=== PATIENT | male | born 1965 | race Caucasian/White ===

== ENCOUNTER 2017-11-12 17:15 | Observation (INO) | payer OTHER ==
[2017-11-12] MEDS ORDERED: PROPOFOL 20 ML (19:36)
[2017-11-12] MEDS ORDERED: NEOSTIGMINE 3 MG/3 ML SYRINGE (19:36)
[2017-11-12] MEDS ORDERED: ROCURONIUM 50 MG INJ (19:36)
[2017-11-12] MEDS ORDERED: CEFAZOLIN 1 GM INJ (19:36)
[2017-11-12] MEDS ORDERED: GLYCOPYRROLATE 0.4 MG INJ (19:36)
[2017-11-12] MEDS ORDERED: ONDANSETRON 4 MG INJ (19:37)
[2017-11-12] MEDS ORDERED: FENTAnyl 50 MCG/ML VIAL (19:37)
[2017-11-12] MEDS ORDERED: MIDAZOLAM 1 MG/ML 2 ML INJ (19:37)
[2017-11-12] MEDS ORDERED: ROPIVACAINE 0.5 % 30 ML VIAL ×2 (19:37→20:26)
[2017-11-12] MEDS ORDERED: DEXAMETHASONE 4 MG/ML 1 ML INJ (19:37)
[2017-11-12] MEDS ORDERED: FENTAnyl 50 MCG/ML VIAL IV ×3 (20:30)
[2017-11-12] MEDS ORDERED: LABETALOL HCL 20MG INJ IV (20:30)
[2017-11-12] MEDS ORDERED: EPHEDrine SULFATE 50 MG/5 ML SYG IV (20:30)
[2017-11-12] MEDS ORDERED: IPRATROPIUM (NEB) 0.5 MG/2.5 ML AMP HHN (20:30)
[2017-11-12] MEDS ORDERED: MIDAZOLAM 1 MG/ML 2 ML INJ IV (20:30)
[2017-11-12] MEDS ORDERED: OXYCODONE/ACETAMINOPHEN (5/325) TAB PO ×2 (20:30)
[2017-11-12] MEDS ORDERED: hydrALAzine 20 MG INJ IV (20:30)
[2017-11-12] MEDS ORDERED: TRIMETHOBENZAMIDE 100 MG/ML VIAL IM (20:30)
[2017-11-12] MEDS ORDERED: HYDROmorphONE 1 MG/5 ML IV SYRINGE IV (20:30)
[2017-11-12] MEDS ORDERED: ALBUTEROL 0.083% (NEB) 2.5 MG/3 ML AMP HHN (20:30)
[2017-11-12] MEDS: POLYMYXIN/BACITRACIN 1L IRRIG IRR (21:00)
[2017-11-13] MEDS ORDERED: SUGAMMADEX SODIUM 200 MG/2 ML VIAL IV (00:54)
[2017-11-13] MEDS ORDERED: KETOROLAC 30 MG INJ (00:57)
[2017-11-13] MEDS: MEPERIDINE 25 MG INJ IV (01:23)
[2017-11-13] MEDS: ONDANSETRON 4 MG INJ IV (01:28)
[2017-11-13] MEDS: HYDROmorphONE 1 MG/5 ML IV SYRINGE IV ×2 (01:28→01:42)
[2017-11-13] MEDS ORDERED: DIPHENHYDRAMINE 25 MG CAP PO (01:30)
[2017-11-13] MEDS ORDERED: CEFAZOLIN 1 GM INJ IV (01:30)
[2017-11-13] MEDS: oxyCODONE 5 MG TAB PO ×5 (01:30→15:13)
[2017-11-13] MEDS: PREGABALIN 75 MG CAP PO ×2 (01:30→08:51)
[2017-11-13] MEDS: ASCORBIC ACID 500 MG TAB PO (01:30)
[2017-11-13] MEDS ORDERED: ONDANSETRON 4 MG INJ IV (01:30)
[2017-11-13] MEDS ORDERED: HYDROmorphONE 1 MG/ML SYG IV (01:30)
[2017-11-13] MEDS: DIPHENHYDRAMINE 50 MG INJ IV (01:48)
[2017-11-13 03:17] LABS: FREE T4 (FREE THYROXINE) 1.69 ng/dl (0.64-1.79)
[2017-11-13 03:18] LABS: T4 (THYROXINE) 9.9 ug/dl (5.5-11.0)
[2017-11-13] MEDS: CEFAZOLIN 1 GM/50 ML (PMX) 50 ML IVPB ×2 (03:34→08:41)
[2017-11-13] MEDS: ERGOCALCIFEROL 50,000 UNIT CAP PO (08:41)
[2017-11-13] MEDS: MULTIVITAMINS THERAPEUTIC TAB PO (08:41)
[2017-11-14] MEDS ORDERED: RIVAROXABAN 10 MG TABLET PO (17:55)
[2017-11-19 16:46] LABS: TSH RECEPTOR ANTIBODY <1 (< OR = 16)
== END 2017-11-13 16:10 | disposition home or self-care (01) ==
LOC: SDS 11-13 02:05 → REC 11-13 01:13 → SDS 17:15 → MS1 11-13 02:05
PROVIDERS: Orthopaedic Surgery
DX: S82.832A Other fracture of upper and lower end of left fibula, initial encounter for closed fracture (principal); S93.422A Sprain of deltoid ligament of left ankle, initial encounter; S93.432A Sprain of tibiofibular ligament of left ankle, initial encounter; M24.072 Loose body in left ankle; G89.18 Other acute postprocedural pain; E66.9 Obesity, unspecified; W12.XXXA Fall on and from scaffolding, initial encounter; Z68.31 Body mass index [BMI] 31.0-31.9, adult
CPT/HCPCS: 27695; 73590; 82306; 84235; 84436; 84439; 97116; 97161